=== PATIENT | female | born 1975 | race American Indian/Alaskan Native ===

== ENCOUNTER 2018-11-10 10:43 | Emergency (ER) | payer MEDICAID, OTHER ==
[2018-11-10 10:53] VITALS: BP 168/92
--- NOTE | 2018-11-10 11:46 | Emergency Department Report ---
ED Extremity Problem HPI - General Chief complaint: Extremity Injury, Lower Stated complaint: R KNEE/LEG INJURY Time Seen by Provider: 11/10/18 11:32 Source: patient Mode of arrival: Ambulatory Limitations: No Limitations - History of Present Illness Initial comments: 43-year-old female presents to ED with complaint of right knee pain 5 days. Patient states she twisted her ankle, fell down, landed on her right knee. MD Complaint: extremity pain -: days(s) (5) Location: right, knee History of Same: No Radiation: none Severity scale (0 -10): 8 Quality: aching Consistency: intermittent Improves with: immobilization Worsens with: weight bearing, walking Associated Symptoms: denies other symptoms - Related Data Previous Rx's Medication Instructions Recorded Last Taken Type Ibuprofen [Motrin] 800 mg PO TID PRN #60 tablet 05/24/13 Unknown Rx oxyCODONE /ACETAMINOPHEN [Percocet 1 tab PO Q6HR PRN #30 tablet 05/24/13 Unknown Rx 5/325 mg] Hydromorphone HCl [Dilaudid] 4 mg PO Q3HR PRN #45 tablet 06/04/13 Unknown Rx Ibuprofen [Motrin] 800 mg PO TID PRN #60 tablet 06/04/13 Unknown Rx metroNIDAZOLE [Flagyl] 500 mg PO BID #14 tablet 06/04/13 Unknown Rx Naproxen [Naprosyn] 500 mg PO BID #20 tablet 11/10/18 Unknown Rx traMADol [Ultram] 50 mg PO Q6HR PRN #7 tablet 11/10/18 Unknown Rx Allergies Allergy/AdvReac Type Severity Reaction Status Date / Time No Known Allergies Allergy Verified 11/10/18 10:45 ED Review of Systems ROS: Stated complaint: R KNEE/LEG INJURY Other details as noted in HPI Comment: All other systems reviewed and negative Musculoskeletal: as per HPI ED Past Medical Hx - Past Medical History Hx Hypertension: No Hx Heart Attack/AMI: No Hx Congestive Heart Failure: No Hx Diabetes: No Hx Deep Vein Thrombosis: No Hx Pulmonary Embolism: No Hx Seizures: No Hx Asthma: No Hx COPD: No Hx Tuberculosis: No Hx Dementia: No Hx HIV: No 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 - Surgical History Hx Coronary Stent: No Hx Pacemaker: No Hx Internal Defibrillator: No Hx Breast Surgery: Yes (augmentation) - Social History Smoking Status: Never Smoker Substance Use Type: Alcohol - Medications Home Medications: Home Medications Medication Instructions Recorded Confirmed Last Taken Type Ibuprofen [Motrin] 800 mg PO TID PRN #60 tablet 05/24/13 Unknown Rx oxyCODONE /ACETAMINOPHEN [Percocet 1 tab PO Q6HR PRN #30 tablet 05/24/13 Unknown Rx 5/325 mg] Hydromorphone HCl [Dilaudid] 4 mg PO Q3HR PRN #45 tablet 06/04/13 Unknown Rx Ibuprofen [Motrin] 800 mg PO TID PRN #60 tablet 06/04/13 Unknown Rx metroNIDAZOLE [Flagyl] 500 mg PO BID #14 tablet 06/04/13 Unknown Rx Naproxen [Naprosyn] 500 mg PO BID #20 tablet 11/10/18 Unknown Rx traMADol [Ultram] 50 mg PO Q6HR PRN #7 tablet 11/10/18 Unknown Rx ED Physical Exam - General Limitations: No Limitations General appearance: alert, in no apparent distress - Head Head exam: Present: atraumatic, normocephalic - Eye Eye exam: Present: normal appearance - ENT ENT exam: Present: mucous membranes moist - Neck Neck exam: Present: normal inspection - Respiratory Respiratory exam: Present: normal lung sounds bilaterally. Absent: respiratory distress - Cardiovascular Cardiovascular Exam: Present: regular rate, normal rhythm - GI/Abdominal GI/Abdominal exam: Absent: distended - Extremities Exam Extremities exam: Present: other (right ankle nontender, no swelling, nml ROM; right knee tender to palpation, no swelling, painful flexion/extension) ED Course Vital Signs 11/10/18 10:50 Temperature 97.5 F L Pulse Rate 74 Respiratory 20 Rate Blood Pressure 168/92 O2 Sat by Pulse 100 Oximetry ED Medical Decision Making - Medical Decision Making Patient refuses knee xray due to cost. Would rather have outpatient follow-up. - Differential Diagnosis sprain, fracture Critical care attestation.: If time is entered above; I have spent that time in minutes in the direct care of this critically ill patient, excluding procedure time. ED Disposition Clinical Impression: Derangement of knee, right Disposition: DC-01 TO HOME OR SELFCARE Is pt being admited?: No Condition: Stable Instructions: Knee Sprain (ED), Knee Immobilizer (ED) Prescriptions: Naproxen [Naprosyn] 500 mg PO BID #20 tablet traMADol [Ultram] 50 mg PO Q6HR PRN #7 tablet PRN Reason: Pain Referrals: AMALIA NOWAK MD [Staff Physician] - 3-5 Days Time of Disposition: 12:28
== END 2018-11-10 12:57 | disposition home or self-care (01) ==
LOC: EDBD 10:43 → ED 10:43
DX: M23.91 Unspecified internal derangement of right knee (principal)
CPT/HCPCS: 99282